=== PATIENT | male | born 1980 | race African-American/Black ===

== ENCOUNTER 2016-09-14 15:51 | Emergency (ER) | payer SELFPAY ==
[~2016-09-14] VITALS: Ht 180.3 cm; Wt 78.9 kg
[2016-09-14 17:10] VITALS: BP 144/68
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
[2016-09-14] MEDS ORDERED: DEBROX15 M1 LEFT EAR (22:34)
== END 2016-09-14 17:19 | disposition home or self-care (01) ==
LOC: EMR 17:16
DX: H61.22 Impacted cerumen, left ear (principal); H93.13 Tinnitus, bilateral
CPT/HCPCS: 99282

== ENCOUNTER 2019-04-05 08:48 | Emergency (ER) | payer MEDICAID ==
[~2019-04-05] VITALS: Ht 180.3 cm; Wt 77.1 kg
[~2019-04-05 08:48] MED LIST: BACITRACIN15 GM TOPIC; BENADRYL25 MG ORAL; DEBROX15 M1 LEFT EAR; HYDROCORTISONE-30 GM TOPIC
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
[2019-04-05 09:00] VITALS: BP 136/83
[2019-04-05] MEDS ORDERED: IBUPROFEN600 MG ORAL (09:00)
--- NOTE | 2019-04-05 09:15 | NUR ---
ER DISCHARGE NOTE: Patient is cleared to be discharged per ERMD, pt is aox4, on room air, with stable vital signs. pt was given dc and prescription instructions, pt was able to verbalize understanding, pt id band removed without complications. pt is able to ambulate with steady gait. pt took all belongings.
[2019-04-05 09:20] VITALS: BP 128/72
== END 2019-04-05 09:20 | disposition home or self-care (01) ==
LOC: EDBD 08:48 → EMR 09:02
DX: S00.03XA Contusion of scalp, initial encounter (principal); S80.02XA Contusion of left knee, initial encounter; W10.2XXA Fall (on)(from) incline, initial encounter; Y92.89 Other specified places as the place of occurrence of the external cause
CPT/HCPCS: 99282

== ENCOUNTER 2020-08-31 21:07 | Emergency (ER) | payer MEDICAID, OTHER ==
[~2020-08-31] VITALS: Ht 180.3 cm; Wt 99.8 kg
[~2020-08-31 21:07] MED LIST changes: +IBUPROFEN600 MG ORAL
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
[2020-08-31 21:12] VITALS: BP 135/79
[2020-08-31] MEDS ORDERED: TYLENOL325 MG ORAL (21:18)
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
[2020-08-31 21:25] VITALS: BP 128/72
[2020-08-31] MEDS ORDERED: Acetaminophen 500mg (ES) tab ORAL ONE (21:30)
== END 2020-08-31 21:25 | disposition home or self-care (01) ==
LOC: EMR 21:18
DX: S09.8XXA Other specified injuries of head, initial encounter (principal); V18.4XXA Pedal cycle driver injured in noncollision transport accident in traffic accident, initial encounter; Y93.55 Activity, bike riding; Y92.9 Unspecified place or not applicable
CPT/HCPCS: 99282